=== PATIENT | female | born 1990 | race Caucasian/White ===

== ENCOUNTER → 2024-01-07 15:38 | Outpatient (BNVA) | payer BC, MEDICAID, SELFPAY | PROVIDERS: PCP Nurse Practitioner Family; Visit Provider Nurse Practitioner Family | DX: N39.0 Urinary tract infection, site not specified (principal); R30.0 Dysuria | CPT/HCPCS: 81000 ==

== ENCOUNTER 2024-02-12 08:41 | Emergency (ER) | payer BC, MEDICAID, SELFPAY ==
[2024-02-12 09:22] VITALS: BP 110/82; PULSE 86; RESP 15; TEMP 37; O2SAT 98
--- NOTE | 2024-02-12 09:24 | ED_ITS ---
HPI - Nausea/Vomiting/Diarrhea 2 General: Chief complaint: Nausea/Vomiting/Diarrhea Stated complaint: N/V/D Time Seen by Provider: 02/12/24 08:57 Source: patient Mode of arrival: ambulatory Limitations: no limitations History of Present Illness: Patient is a 33-year-old female presents to ED today with complaint of nausea, vomiting, diarrhea starting yesterday evening and into this morning. Patient states today that [employer] yesterday and states she had cold shrimp and thinks maybe she got sick from that. She has intermittent abdominal cramping before defecation but improves afterwards. She is not running fevers. MD elicited complaint: nausea, vomiting, diarrhea and abdominal pain Onset (ago): hour(s) Description of diarrhea: watery Associated nausea: Yes Associated abdominal pain: Yes Location of pain: Diffuse Radiation: diffuse Pain consistency: intermittent Severity: mild Quality: cramping Relieving factors: bowel movement and vomiting Context: other (possible poor food exposure) Associated symtoms: Reports no associated symptoms and nausea; Denies chest pain, dizziness, dysuria, fatigue, headache(s) or malaise Review of Systems 2 Const: Denies: fever(s), chills, body aches, fatigue or malaise Card: Denies: chest pain Resp: Denies: dyspnea GI: Reports: abdominal pain, nausea, vomiting and diarrhea; Denies: hematemesis, hematochezia or melena : Denies: flank pain, difficulty voiding, dysuria, urinary frequency, urinary urgency or urinary hesitancy Musc: Denies: neck pain, back pain, extremity pain or joint pain Skin/Breast: Denies: rash Neuro: Denies: headache(s), numbness in extremities, weakness in extremities, sensory changes or dizziness PFS ED 2 PFSH: Social History Smoking and tobacco/nicotine status: current every day tobacco/nicotine user Physical Exam 2 Const: COMMON NORMALS: no acute distress, average body habitus, patient oriented x3, no limitations, healthy appearing, alert and well nourished G ENERAL APPEARANCE: cooperative ORIENTATION/CONSCIOUSNESS: Yes awake, Yes oriented to person, Yes oriented to place and Yes oriented to time Eye: COMMON NORMALS: no scleral icterus Resp: COMMON NORMALS: normal respiratory effort and clear to auscultation bilaterally AUSCULTATION: clear to auscultation bilaterally Cardio: COMMON NORMALS: regular rate and regular rhythm RATE: regular rate RHYTHM: regular rhythm GI: COMMON NORMALS: Normal to inspection, nondistended, normoactive bowel sounds present, Soft to palpation, non-tender, No hepatosplenomegaly present and no masses AUSCULTATION: Yes normoactive bowel sounds PALPATION: Yes Soft to palpation, No Tenderness to palpation present (GI), No Guarding due to palpation present (GI), No Rigid due to palpation and Yes No hepatosplenomegaly present : COMMON NORMALS: Yes no CVA tenderness BLADDER/KIDNEY EXAM: Yes no CVA tenderness Back/Pelvis: COMMON NORMALS: no CVA tenderness Neuro: FATMATA COMA SCALE: document GCS findings Fatmata coma scale eye opening: Spontaneous Aurora coma scale verbal response: Orientated Fatmata coma scale motor response: Obey commands Aurora coma scale total score: 15 COMMON NORMALS: patient oriented x3 SENSORIUM/ORIENTATION: Yes alert, Yes oriented to person, Yes oriented to place and Yes oriented to time Skin: COMMON NORMALS: no rashes or lesions noted GENERAL SKIN EXAM: no rashes or lesions noted Course 2 Vital Signs: Vital signs: Vital Signs Temperature 98.6 F 02/12/24 09:22 Pulse Rate 78 02/12/24 09:55 Respiratory Rate 15 02/12/24 09:22 Blood Pressure 133/70 02/12/24 09:55 Pulse Oximetry 97 02/12/24 09:55 Oxygen Delivery Me thod Room Air 02/12/24 09:55 MDM - Nausea/Vomiting/Diarrhea Medical Decision Making Patient appears in no acute distress. Her vital signs are stable. She has not had any vomiting or diarrhea while here. Blood work is unremarkable. She feels much better after IV fluids and Zofran. Symptoms most likely consistent with a food poisoning/gastroenteritis. She will be sent home with Zofran. Recommend fluids and rest. Reassurance given as these are most likely self-limiting. Return to ED precautions given. Differential Diagnosis Likely food poisoning, gastroenteritis and dehydration Medical Records I reviewed the patient's medical records. Lab Data I reviewed the patient's lab results. 02/12/24 09:28 02/12/24 09:28 Laboratory Results WBC 5.30 10^3/uL (3.29-11.43) 02/12/24 09: RBC 4.95 10^6/uL (3.85-5.65) 02/12/24: Hgb 14.60 g/dL (11.27-16.99) 02/12/24: Hct 43.0 % (36-47) 02/12/24: MCV 86.9 fl (85-98) 02/12/24: MCH 29.5 pg (27-33) 02/12/24: MCHC 34.0 g/dL (30-55) 02/12/24: RDW 12.1 % (12.1-15.1) 02/12/24: Plt Count 335 10^3/cmm (157-399) 02/12/24: MPV 9.2 fL (7.4-10.4) 02/12/24: Neut % (Auto) 72.8 % 02/12/24: Lymph % (Auto) 18.1 % 02/12/24: [place] % (Auto) 4.5 % 02/12/24: Eos % (Auto) 3.4 % 02/12/24: Baso % (Auto) 0.8 % 02/12/24: Neut # (Auto) 3.86 10^3/uL (1.8-7.7) 02/12/24: Lymph # (Auto) 1.0 10^3/uL (0.8-4.8) 02/12/24: [place] # (Auto) 0.2 10^3/uL (0.2-0.9) 02/12/24: Eos # (Auto) 0.2 10^3/uL (0.0-0.8) 02/12/24: Baso # (Auto) 0.0 10^3/uL (0.0-0.1) 02/12/24: Nucleated RBC % (auto) 0 % 02/12/24: Nucleated RBCs # 0.0 /100WBC 02/12/24: Sodium 139 mmol/L (136-145) 02/12/24: Potassium 4.3 mmol/L (3.5-5.1) 02/12/24 09:28 Chloride 106 mmol/L (98-107) 02/12/24 09:28 Carbon Dioxide 24 mmol/L (22-29) 02/12/24:28 Anion Gap 13.3 (5-19) 02/12/24 09:28 BUN 14 mg/dL (6-20) 02/12/24 09:28 Creatinine 0.6 mg/dL (0.5-0.9) 02/12/24: GFR Calculation 116.6 mL/min (90-130) 02/12/24 09: Glucose 103 mg/dL (65-115) 02/12/24: Calculated Osmolality 289 mOsm/kg (285-295) 02/12/24: Calcium 8.8 mg/dL (8.5-10.5) 02/12/24: Total Bilirubin 0.4 mg/dL (0.15-1.2) 02/12/24: AST 16 U/L (0-32) 02/12/24: ALT 12 U/L (0-33) 02/12/24: Alkaline Phosphatase 81 U/L (35-105) 02/12/24 09:28 Total Protein 7.7 g/dL (6.6-8.7) 02/12/24: Albumin 4.3 g/dL (3.5-5.2) 02/12/24 09: Globulin 3.4 g/dL (1.3-4.6) 02/12/24: Lipase 26 U/L (13-60) 02/12/24 09:28 HCG, Qual Negative (Negative) 02/12/24 09:28 Urine Color Yellow (Yellow) 02/12/24 10:19 Urine Appearance Clear (CLEAR) 02/12/24 10:19 Urine pH 8 (5-7) H 02/12/24 10:19 Ur Specific [place] 1.010 (1.005-1.030) 02/12/24 10:19 Urine Protein Neg (Negative) 02/12/24 10:19 Urine Glucose (UA) Norm (Normal) 02/12/24 10:19 Urine Ketones Negative (Negative) 02/12/24 10:19 Urine Blood Neg (Negative) 02/12/24 10:19 Urine Nitrate Negative (Negative) 02/12/24 10:19 Urine Bilirubin Neg (Negative) 02/12/24 10:19 Prot Sulfosalicylic Acd Negative (Negative) 02/12/24 10:19 Urine Urobilinogen Neg mg/dL (Negative) 02/12/24 10:19 Ur Leukocyte Esterase Negative (Negative) 02/12/24 10:19 No radiology studies performed this visit Discharge Plan Discharge Patient Disposition: Home Clinical Impression: Gastroenteritis Condition: Stable Prescriptions: New ondansetron 4 mg tablet,disintegrating 4 mg PO Q8H PRN (Reason: nausea and vomiting) Qty: 14 0RF No Action albuterol sulfate 90 mcg/actuation aero powdr breath act w/sensor 90 mcg inhalation Q6H PRN (Reason: shortness of breath or wheezing) Qty: 1 5RF fluticasone propion-salmeterol [Advair HFA] 115-21 mcg/actuation HFA aerosol inhaler 2 puff inhalation BID Qty: 12 5RF montelukast [Singulair] 10 mg tablet 10 mg PO DAILY Qty: 90 3RF naproxen 500 mg tablet 500 mg PO BID PRN (Reason: pain) Qty: 30 0RF Discharge Orders: Discharge ED (Routine); Ordered 02/12/24 Ordered By: Jacquelin Archuleta Referrals: Enriqueta Prieto, [employer] [employer] [Primary Care Provider] - Patient Instructions: Gastroenteritis (DC), Food Poisoning (ED), Food Poisoning - Adult Coding Level of Care Code ED [employer] for Junieg Prieto
[2024-02-12 09:36] LABS: Basophils % 0.8 %; Eosinophils # 0.2 10^3/uL (0.0-0.8); Eosinophils % 3.4 %; Lymphocytes % 18.1 %; Mean Corpuscular Hemoglobin 29.5 pg (27-33); Mean Corpuscular Volume 86.9 fl (85-98); Mean Platelet Volume 9.2 fL (7.4-10.4); Monocytes # 0.2 10^3/uL (0.2-0.9); Monocytes % 4.5 %; Neutrophils # 3.86 10^3/uL (1.8-7.7); Neutrophils % 72.8 %; Nucleated Red Blood Cells % 0 %; Platelet Count 335 10^3/cmm (157-399); Red Blood Count 4.95 10^6/uL (3.85-5.65); Red Cell Distribution Width 12.1 % (12.1-15.1)
[2024-02-12] MEDS: sodium chloride 0.9% 1,000 ML 999 ML IV (09:50)
[2024-02-12] MEDS: ondansetron 2 mg/ML SDV 2 mL 4 MG IVP (09:51)
[2024-02-12 09:55] VITALS: BP 133/70; PULSE 78; O2SAT 97
[2024-02-12 09:55] LABS: Alanine Aminotransferase 12 U/L (0-33); Albumin Level 4.3 g/dL (3.5-5.2); Alkaline Phosphatase 81 U/L (35-105); Anion Gap 13.3 (5-19); Aspartate Amino Transferase 16 U/L (0-32); Blood Urea Nitrogen 14 mg/dL (6-20); Calcium 8.8 mg/dL (8.5-10.5); Carbon Dioxide 24 mmol/L (22-29); Chloride 106 mmol/L (98-107); Creatinine Clr Calc Pharmacy 113.8874; Globulin 3.4 g/dL (1.3-4.6); Glomerular Filtration Rate 116.6 mL/min (90-130); Glucose 103 mg/dL (65-115); Lipase 26 U/L (13-60); Osmolality Calculated 289 mOsm/kg (285-295); Potassium 4.3 mmol/L (3.5-5.1); Sodium 139 mmol/L (136-145); Total Bilirubin 0.4 mg/dL (0.15-1.2); Total Protein 7.7 g/dL (6.6-8.7)
[2024-02-12 09:56] LABS: HCG, Serum Qual Negative (Negative)
[2024-02-12 10:32] LABS: Add Urine Microscopic? NO; Charge for UA Resulting for Rev
[2024-02-12 11:03] LABS: Bilirubin Urine Neg (Negative); Blood Urine Neg (Negative); Glucose Urine UA Norm (Normal); Ketones Urine Negative (Negative); Leukocyte Esterase Urine Negative (Negative); Nitrate Urine Negative (Negative); Protein Urine Neg (Negative); Sulfosalicylic Acid Urine Negative (Negative); Urine Appearance Clear (CLEAR); Urine Color Yellow (Yellow); Urobilinogen Urine Neg (Negative); pH Urine 8 (5-7)
[2024-02-12 11:28] VITALS: BP 120/81; PULSE 69; O2SAT 97
== END 2024-02-12 11:30 | disposition home or self-care (01) ==
PROVIDERS: Emergency Provider Physician Assistant; PCP Nurse Practitioner Family
DX: K52.9 Noninfective gastroenteritis and colitis, unspecified (principal); Z72.0 Tobacco use
CPT/HCPCS: 80053; 81003; 83690; 84703; 85025; 96361; 96374; 99284; J2405; J7030